=== PATIENT | male | born 1965 | race Hispanic/Latino ===

== ENCOUNTER → 2023-06-21 06:35 | Outpatient (REF) | payer OTHER, SELFPAY | LOC: HWRAD 06:35 | PROVIDERS: ATTENDING PHYSICIAN Physician Assistant | DX: M25.511 Pain in right shoulder (principal); M54.41 Lumbago with sciatica, right side; M54.42 Lumbago with sciatica, left side; M54.2 Cervicalgia | CPT/HCPCS: 72050; 72110; 73030 ==

== ENCOUNTER → 2023-11-08 09:36 | Outpatient (REF) | payer OTHER, SELFPAY | LOC: RAD 09:36 | PROVIDERS: ATTENDING PHYSICIAN Family Medicine | DX: M54.50 Low back pain, unspecified (principal); M25.50 Pain in unspecified joint | CPT/HCPCS: 72110; 73523 ==

== ENCOUNTER 2023-12-07 06:29 | Day surgery (SDC) | payer OTHER, SELFPAY ==
[2023-12-03 14:25] VITALS: BMI 35.8
[2023-12-03 15:19] LABS: Hematocrit 45.5 % (39.0-52.0); Hemoglobin 15.3 g/dL (13.0-18.0); Mean Corp Hgb Conc. 33.6 g/dL (33.0-37.0); Mean Corpuscular Hgb 28.6 pg (27.0-31.0); Mean Platelet Volume 9.9 fL (7.4-10.4); Platelet Count 346 10^3/uL (130-400); Red Blood Cell Count 5.35 10^6/uL (4.70-6.10); Red Cell Dist. Width 12.4 % (11.5-14.5); White Blood Cell Count 5.9 10^3/uL (4.8-10.8)
[2023-12-03 15:30] LABS: INR 1.09
[2023-12-03 15:39] LABS: Urine Albumin Negative (Neg - Trace); Urine Bilirubin Negative (Negative); Urine Character Clear (Clear); Urine Color Yellow; Urine Glucose Negative (Negative); Urine Ketone Negative (Negative); Urine Leukocyte Negative (Negative); Urine Nitrite Negative (Negative); Urine Occult Blood Negative (Negative); Urine Urobilinogen Negative (Neg - 1+)
[2023-12-07] VITALS (10 sets, daily range): BP systolic 96–132; BP diastolic 63–93; BMI 35.8
[2023-12-07] MEDS: NORMOSOL-R/PLASMALYTE-A 1000 IV (13:37)
--- NOTE | 2023-12-07 16:58 | W.IMMPOSTOP ---
Surgical Immed Post Op Note
-
Primary Surgeon: Jyotifer
Assisting Surgeon: none
Pre-op Diagnosis: BPH
Post-op Diagnosis: BPH
Procedure Performed: TURP
Anesthesia Type: general
Specimen / Cultures: prostate chips
Estimated Blood Loss: 1cc
Complications: none
Operative Findings: none
[2023-12-07] MEDS: MORPHINE SULFATE 4 MG IV (17:02)
[2023-12-07] MEDS: LIDOCAINE URO-JET 2% 1 SYRINGE TOPICAL (17:34)
[2023-12-07] MEDS: NSS 1000 IV (18:10)
--- NOTE | 2023-12-07 18:25 | PTCARENOTE ---
Pt arrived to 2S in bed. Full assessment completed. Garsia catheter clean and intact. CBI infusing per order. [place] tinged urine output noted. IVF initiated. Bed locked and in the lowest position, safety maintained. Pt verbalized understanding to ring
for assistance. Oriented to room and call hobbs.
[2023-12-07] MEDS: PERCOCET 5/325 1 TABLET PO ×2 (19:34→23:28)
[2023-12-08] MEDS: NSS 1000 IV (01:02)
[2023-12-08 03:00] VITALS: BP 124/73
[2023-12-08] MEDS: PERCOCET 5/325 1 TABLET PO ×2 (05:47→10:01)
--- NOTE | 2023-12-08 06:11 | PTCARENOTE ---
CBI clamped @ 0600, pink tinged no clots throughout shift.
[2023-12-08 07:00] VITALS: BP 123/86
[2023-12-08 07:38] LABS: Hematocrit 43.5 % (39.0-52.0); Hemoglobin 14.8 g/dL (13.0-18.0); Mean Corpuscular Volume 85.1 fL (80.0-94.0); Mean Platelet Volume 9.4 fL (7.4-10.4); Platelet Count 354 10^3/uL (130-400); Red Blood Cell Count 5.11 10^6/uL (4.70-6.10); Red Cell Dist. Width 12.1 % (11.5-14.5); White Blood Cell Count 9.5 10^3/uL (4.8-10.8)
[2023-12-08 08:21] LABS: Blood Urea Nitrogen 14 mg/dl (9-20); Carbon Dioxide 22 mmol/L (22-30); Chloride 104 mmol/L (98-107); Estimated Creatinine Clearance 118 ml/min; Glucose 128 mg/dl (70-99); Potassium 4.7 mmol/L (3.5-5.1); Sodium 141 mmol/L (135-145); eGFR > 60.00
--- NOTE | 2023-12-08 09:53 | W.PN.URO.CBU ---
Today's Communication / Plan
-
discharge if passes voiding trial
Assessment / Plan
-
s/p TURP
bullock out for TOV
Diagnosis
-
Date of Service: December 08, 2023
-
Patient Diagnosis:
s/p TURP 12/06
Subjective
-
pt with penile pain
urine light pink off cbi
Objective
-
Vital Signs
Temp Pulse Resp BP Pulse Ox
98.5 F 89 16 123/86 96
12/08/23 07:00 12/08/23 07:00 12/08/23 07:00 12/08/23 07:00 12/08/23 07:00
Intake and Output
12/07/23 12/08/23 12/09/23
06:59 06:59 06:59
Intake Total 2500 / 2500
Output Total 2250 / 2250
Balance 250 / 250
Intake:
Oral fluids 900 / 900
IV fluids (Total) 1600 / 1600
normosol 100 / 100
Output:
True Urine Output from CBI 2250 / 2250
Laboratory Results
12/08/23 06:31
12/08/23 06:31
Review of Systems
-
Constitutional: No Symptoms
Respiratory: No Symptoms
Cardiac: No Symptoms
Abdomen/GI: No Symptoms
Physical Exam
-
General - no acute distress
Abdomen - soft, non-tender
Genitalia - normal- bullock
--- NOTE | 2023-12-08 11:00 | PTCARENOTE ---
used language line with Dr. Mak to remove Garsia and explain post care to pt. All questions were answered at that time.
[2023-12-08 11:24] VITALS: BP 123/86
[2023-12-08 15:00] VITALS: BP 144/86
--- NOTE | 2023-12-08 16:01 | PTCARENOTE ---
Kleber from language [id number] assisted in discharged instructions
== END 2023-12-08 16:32 | disposition home or self-care (01) ==
LOC: SDS 06:29
PROVIDERS: ATTENDING PHYSICIAN Urology
DX: C61 Malignant neoplasm of prostate (principal); N40.0 Benign prostatic hyperplasia without lower urinary tract symptoms
CPT/HCPCS: 52601; 88307; 36415; 80048; 81003; 85027; 85610; 85730; 88344; 93005

== ENCOUNTER → 2023-12-20 12:54 | Outpatient (REF) | payer OTHER, SELFPAY | LOC: PAVMRI 12:54 | PROVIDERS: ATTENDING PHYSICIAN Family Medicine; REFERRING PHYSICIAN Orthopaedic Surgery | DX: M25.511 Pain in right shoulder (principal) | CPT/HCPCS: 73221 ==

== ENCOUNTER → 2024-06-09 14:09 | Outpatient (REF) | payer OTHER, SELFPAY | LOC: RAD 14:09 | PROVIDERS: ATTENDING PHYSICIAN Physician Assistant Medical | DX: R06.02 Shortness of breath (principal) | CPT/HCPCS: 71046 ==

== ENCOUNTER → 2024-07-23 09:50 | Outpatient (REF) | payer OTHER, SELFPAY | LOC: DHSLP 09:50 | PROVIDERS: ATTENDING PHYSICIAN Internal Medicine Critical Care Medicine; FAMILY PHYSICIAN Family Medicine | DX: G47.33 Obstructive sleep apnea (adult) (pediatric) (principal) | CPT/HCPCS: 95810 ==

== ENCOUNTER → 2024-08-14 17:09 | Outpatient (REF) | payer OTHER, SELFPAY | LOC: RAD 17:09 | PROVIDERS: ATTENDING PHYSICIAN Internal Medicine Critical Care Medicine | DX: R93.89 Abnormal findings on diagnostic imaging of other specified body structures (principal) | CPT/HCPCS: 71046 ==

== ENCOUNTER → 2024-10-17 14:34 | Outpatient (REF) | payer OTHER, SELFPAY | LOC: HWRAD 14:34 | PROVIDERS: ATTENDING PHYSICIAN Internal Medicine Critical Care Medicine; FAMILY PHYSICIAN Family Medicine | DX: R93.89 Abnormal findings on diagnostic imaging of other specified body structures (principal); Z87.891 Personal history of nicotine dependence | CPT/HCPCS: 71250 ==